=== PATIENT | male | born 1950 | race Caucasian/White ===

== ENCOUNTER 2017-05-30 12:03 | Inpatient (IN) | payer OTHER ==
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
[2017-05-30 12:45] LABS: HEMATOCRIT 41.5 % (40.0-51.0); MEAN CELL HEMOGLOBIN 31.2 pg (27.9-34.1); MEAN CELL HEMOGLOBIN CONCENTR. 33.7 g/dL (32.4-36.7); MEAN CELL VOLUME 92.4 fL (81.5-99.8); RED BLOOD CELL COUNT 4.49 10^6/uL (4.40-6.38); RED CELL DISTRIBUTION WIDTH 13.7 % (11.5-15.2)
[2017-05-30] MEDS ORDERED: NS 1,000 ML IV ONE (12:45)
[2017-05-30] MEDS ORDERED: IOPAMIDOL (ISOVUE-300) 100 ML BTL ONE (12:53)
[2017-05-30 12:54] LABS: INR 1.01 (0.83-1.16); PROTIME(PATIENT) 13.2 SEC (12.0-15.0)
[2017-05-30 12:55] LABS: ANION GAP 13 mEq/L (8-16); CALCIUM 9.4 mg/dL (8.5-10.4); CARBON DIOXIDE 20 mEq/l (22-31); CHLORIDE 110 mEq/L (97-110); CREATININE 0.9 mg/dL (0.7-1.3); GLOMERULAR FILTRATION RATE > 60; GLUCOSE 89 mg/dL (70-100); POTASSIUM 4.1 mEq/L (3.5-5.2); SODIUM 143 mEq/L (134-144)
[2017-05-30] MEDS ORDERED: fentaNYL 100 MCG/2 ML INJ IVP ONE ×2 (13:30→14:08)
[2017-05-30] MEDS ORDERED: TRANEXAMIC ACID 1,000 MG in NS 500 ML IV ONE (13:32)
[2017-05-30] MEDS ORDERED: TRANEXAMIC ACID 1,000 MG in NS 100 ML IV ONE (13:32)
[2017-05-30] MEDS ORDERED: TRANEXAMIC ACID 1,000 MG/10 ML VIAL ONE (13:38)
[2017-05-30] MEDS ORDERED: SKIN ADHESIVE (DERMABOND) 1 EACH TP ONE (13:55)
[2017-05-30] MEDS ORDERED: ONDANSETRON DISINTEGRATING 4 MG TAB PO PRN (14:28)
[2017-05-30] MEDS ORDERED: NALOXONE HCL 0.4 MG/ML INJ IVP PRN (14:28)
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
[2017-05-30 15:27] LABS: K TIME 1.4 minutes (1-3); MAXIMUM AMPLITUDE 64.6 mm (50-70); R TIME 3.7 minutes (5-10)
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
[2017-05-30] MEDS: levETIRAcetam 500 MG TAB PO SCH (20:48)
[2017-05-30] MEDS ORDERED: OXYCODONE/APAP 5/325 TAB ONE (23:21)
[2017-05-30] MEDS: OXYCODONE/APAP 5/325 TAB PO PRN (23:29)
[2017-05-31] MEDS: OXYCODONE/APAP 5/325 TAB PO PRN ×4 (04:32→21:59)
[2017-05-31] MEDS: levETIRAcetam 500 MG TAB PO SCH ×2 (07:31→20:44)
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
[2017-05-31] MEDS: TAMSULOSIN HCL 0.4 MG CAP PO SCH (18:39)
[2017-06-01] MEDS: OXYCODONE/APAP 5/325 TAB PO PRN ×4 (03:13→23:59)
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
--- NOTE | 2017-06-01 09:00 | PDINTPN ---
Balance Screwhead Polisher Progress Note Assessment/Plan: Assessment: * Status post large subdural with midline shift-started on transexemic acid. Unclear yet if patient will require surgery * Multitrauma * Coagulopathy-was on Effient * Coronary disease- * Pain-well controlled * Nutrition- adequate Plan: Transferred SDU Continue pain control Continue PT/OT Subjective: Resting comfortably. Headache minimal at this time Objective: Vital Signs Temp Pulse Resp BP Pulse Ox 36.6 C 67 16 150/70 H 96 06/01/17 08:00 06/01/17 08:00 06/01/17 08:00 06/01/17 08:00 06/01/17 08:00 05/31/17 06/01/17 06/02/17 05:59 05:59 05:59 Intake Total 2303 1275 Output Total 570 100 Balance 1733 1175 PT 13.2 SEC (12.0-15.0) 05/30/17 12:10 INR 1.01 (0.83-1.16) 05/30/17 12:10 Physical Exam - Physical Exam General Appearance: alert, no apparent distress EENT: PERRL/EOMI, normal ENT inspection, other (Prostatic left eye) Neck: non-tender, full range of motion, supple Respiratory: chest non-tender, lungs clear, normal breath sounds Cardiac/Chest: normal peripheral pulses, regular rate, rhythm Peripheral Pulses: 2+: carotid (R), carotid (L), femoral (R), femoral (L), dorsalis-pedis (R), dorsalis-pedis (L) Abdomen: normal bowel sounds, non-tender, soft Male Genitalia: deferred Rectal: deferred Skin: normal color, warm/dry Extremities: normal range of motion, non-tender, normal inspection, normal capillary refill ICD10 Worksheet Patient Problems: Problems Problem Status Onset Acute subdural hematoma Acute Coagulopathy Acute
[2017-06-01] MEDS: ATORVASTATIN CALCIUM 40 MG TAB PO SCH (09:25)
[2017-06-01] MEDS: levETIRAcetam 500 MG TAB PO SCH ×2 (09:28→20:53)
[2017-06-01] MEDS: TRANEXAMIC ACID 650 MG TAB PO SCH ×2 (09:28→20:53)
--- NOTE | 2017-06-01 11:34 | TRAUMAPN ---
- Problem/Surgery Performed (1) Acute subdural hematoma Assessment/Plan: SDH with less shift yesterday, Patient neurologically stable, TEG normal yesterday, FU TEG today. Plan F/u CT on . Will downgrade to SDU (2) Coagulopathy Assessment/Plan: After platelets TEG Okay yesterday. F/u planned for today. Will start heat to left flank hematoma to speed resolution. Facial contusions stable Assessment/Plan: Will down grade ICU to SDU Subjective: I'm tired but feeling okay Objective: Vital Signs Temp Pulse Resp BP Pulse Ox 36.6 C 67 16 150/70 H 96 06/01/17 08:00 06/01/17 08:00 06/01/17 08:00 06/01/17 08:00 06/01/17 08:00 05/31/17 06/01/17 06/02/17 05:59 05:59 05:59 Intake Total 2303 1275 Output Total 570 100 Balance 1733 1175 PT 13.2 SEC (12.0-15.0) 05/30/17 12:10 INR 1.01 (0.83-1.16) 05/30/17 12:10 - C-Spine Clearance Cervical Spine Cleared: Yes Provider who Cleared Cervical Spine: Art Time Cervical Spine was Cleared: 15:00 (05/30) Physical Exam - Physical Exam General Appearance: WD/WN, alert, no apparent distress EENT: PERRL/EOMI (Right eye), normal ENT inspection Neck: non-tender, full range of motion, supple Respiratory: chest non-tender, lungs clear, normal breath sounds Cardiac/Chest: regular rate, rhythm Abdomen: normal bowel sounds, non-tender, soft, other (Has large left flank hematoma) Male Genitalia: deferred Rectal: deferred Back: Normal inspection Skin: normal color, warm/dry Neuro/Psych: no motor/sensory deficits, alert, normal mood/affect, oriented x 3 Time Spent w/Patient (minutes): 35
[2017-06-01 11:54] LABS: % IMMATURE GRANULYOCYTES 0.5 % (0.0-1.1); ABSOLUTE IMMATURE GRANULOCYTES 0.03 10^3/uL (0.00-0.10); ADD DIFF? NO; ADD MORPH? NO; ADD SCAN? NO; ATYPICAL LYMPHOCYTE FLAG 0 (0-99); FRAGMENT RBC FLAG 0 (0-99); HEMOGLOBIN 11.5 g/dL (13.7-17.5); LEFT SHIFT FLG 0 (0-99); LIPEMIA HEMOLYSIS FLAG 90 (0-99); MEAN CELL HEMOGLOBIN 31.3 pg (27.9-34.1); MEAN CELL HEMOGLOBIN CONCENTR. 33.8 g/dL (32.4-36.7); MEAN CELL VOLUME 92.6 fL (81.5-99.8); MEAN PLATELET VOLUME 9.7 fL (8.7-11.7); PLATELET CLUMPS FLAG 0 (0-99); PLATELET COUNT 159 10^3/uL (150-400); RED BLOOD CELL COUNT 3.67 10^6/uL (4.40-6.38); RED CELL DISTRIBUTION WIDTH 13.8 % (11.5-15.2)
[2017-06-01 14:18] LABS: R TIME 4.2 minutes (5-10)
[2017-06-01 14:19] LABS: ALPHA ANGLE 71.8 degrees (53-72); K TIME 1.2 minutes (1-3); MAXIMUM AMPLITUDE 65.6 mm (50-70)
[2017-06-01 14:20] LABS: AA % INHIBITION 69.1 % (0-100)
[2017-06-01] MEDS: TAMSULOSIN HCL 0.4 MG CAP PO SCH (20:53)
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
[2017-06-02] MEDS: ATORVASTATIN CALCIUM 40 MG TAB PO SCH (09:20)
[2017-06-02] MEDS: levETIRAcetam 500 MG TAB PO SCH ×2 (09:20→21:34)
[2017-06-02] MEDS: TRANEXAMIC ACID 650 MG TAB PO SCH ×2 (09:20→21:34)
--- NOTE | 2017-06-02 09:20 | TRAUMAPN ---
- Problem/Surgery Performed (1) Acute subdural hematoma Assessment/Plan: 06/01/2017 SDH with less shift yesterday, Patient neurologically stable, TEG normal yesterday, FU TEG today. Plan F/u CT on . Will downgrade to SDU 06/02 Neurologically stable. F/u CT in Am 06/03 (2) Coagulopathy Assessment/Plan: 06/01/2017 After platelets TEG Okay yesterday. F/u planned for today. Will start heat to left flank hematoma to speed resolution. Facial contusions stable 06/02/2017 F/u TEG yesterday was normal Assessment/Plan: 06/01/2017 Will down grade ICU to SDU 06/02/2017 No stool since admission Will limit constipating foods, ambulate and add Miralax Subjective: "I feel good" No issues but no flatus or stool Objective: Vital Signs Temp Pulse Resp BP Pulse Ox 36.7 C 78 14 121/49 H 99 06/02/17 07:43 06/02/17 07:43 06/02/17 07:43 06/02/17 07:43 06/02/17 07:43 Laboratory Results 06/01/17 11:30 06/01/17 06/02/17 06/03/17 05:59 05:59 05:59 Intake Total 1275 1000 Output Total 100 Balance 1175 1000 PT 13.2 SEC (12.0-15.0) 05/30/17 12:10 INR 1.01 (0.83-1.16) 05/30/17 12:10 - C-Spine Clearance Cervical Spine Cleared: Yes Provider who Cleared Cervical Spine: Art Time Cervical Spine was Cleared: 15:00 (05/30) Physical Exam - Physical Exam General Appearance: WD/WN, alert, no apparent distress EENT: other (left facial contusions) Neck: non-tender, full range of motion, supple Respiratory: chest non-tender, lungs clear, normal breath sounds Cardiac/Chest: regular rate, rhythm Abdomen: normal bowel sounds, non-tender, soft, other (left flank contusion/ hematoma continues) Male Genitalia: deferred Rectal: deferred Back: Normal inspection Skin: normal color, warm/dry Extremities: normal range of motion, non-tender, normal inspection Neuro/Psych: no motor/sensory deficits, alert, normal mood/affect, oriented x 3 Time Spent w/Patient (minutes): 15
--- NOTE | 2017-06-02 09:50 | PDINTPN ---
Furnace Mason Progress Note Assessment/Plan: Assessment: * Status post large subdural with midline shift-started on transexemic acid. Unclear yet if patient will require surgery. -clinically at baseline -repeat CT scan of head tomorrow * Multitrauma * Coagulopathy-was on Effient * Coronary disease- * Pain-well controlled * Nutrition- adequate Plan: Transferred SDU Continue pain control Continue PT/OT Subjective: Resting comfortably. Denies headache. Ambulating in the halls well. Objective: Vital Signs Temp Pulse Resp BP Pulse Ox 36.7 C 78 14 121/49 H 99 06/02/17 07:43 06/02/17 07:43 06/02/17 07:43 06/02/17 07:43 06/02/17 07:43 Laboratory Results 06/01/17 11:30 06/01/17 06/02/17 06/03/17 05:59 05:59 05:59 Intake Total 1275 1000 Output Total 100 Balance 1175 1000 PT 13.2 SEC (12.0-15.0) 05/30/17 12:10 INR 1.01 (0.83-1.16) 05/30/17 12:10 Physical Exam - Physical Exam General Appearance: WD/WN, alert, no apparent distress EENT: PERRL/EOMI, normal ENT inspection Neck: non-tender, full range of motion, supple, normal inspection Respiratory: chest non-tender, lungs clear, normal breath sounds Cardiac/Chest: normal peripheral pulses, regular rate, rhythm Peripheral Pulses: 2+: carotid (R), carotid (L), femoral (R), femoral (L), dorsalis-pedis (R), dorsalis-pedis (L) Abdomen: normal bowel sounds, non-tender, soft Male Genitalia: deferred Rectal: deferred Skin: normal color, warm/dry Extremities: normal range of motion, non-tender, normal inspection, normal capillary refill Neuro/Psych: no motor/sensory deficits, alert, normal mood/affect, oriented x 3 ICD10 Worksheet Patient Problems: Problems Problem Status Onset Acute subdural hematoma Acute Coagulopathy Acute
[2017-06-02] MEDS: POLYETHYLENE GLYCOL 3350 17 GM PKT PO SCH ×2 (09:57→21:34)
[2017-06-02] MEDS: TAMSULOSIN HCL 0.4 MG CAP PO SCH (21:34)
[2017-06-02] MEDS: OXYCODONE/APAP 5/325 TAB PO PRN (23:59)
[2017-06-03 08:05] VITALS: PULSE 63; TEMP 98.5
[2017-06-03] MEDS: TRANEXAMIC ACID 650 MG TAB PO SCH (08:24)
[2017-06-03] MEDS: ATORVASTATIN CALCIUM 40 MG TAB PO SCH (08:24)
[2017-06-03] MEDS: levETIRAcetam 500 MG TAB PO SCH (08:25)
[2017-06-03] MEDS: POLYETHYLENE GLYCOL 3350 17 GM PKT PO SCH (08:25)
--- NOTE | 2017-06-03 08:54 | PDINTPN ---
Hand Iii Cutter Progress Note Assessment/Plan: Assessment: * Status post large subdural with midline shift-started on transexemic acid. Unclear yet if patient will require surgery. -clinically at baseline -repeat CT scan of head today * Multitrauma * Coagulopathy-was on Effient * Coronary disease- * Pain-well controlled * Nutrition- adequate Plan: Transferred SDU Continue pain control Continue PT/OT Repeat CT scan today Subjective: Resting comfortably. Objective: Vital Signs Temp Pulse Resp BP Pulse Ox 36.9 C 63 17 135/66 H 91 L 06/03/17 08:00 06/03/17 08:00 06/03/17 08:00 06/03/17 08:00 06/03/17 08:00 Laboratory Results 06/01/17 11:30 06/02/17 06/03/17 06/04/17 05:59 05:59 05:59 Intake Total 1000 2000 Balance 1000 2000 PT 13.2 SEC (12.0-15.0) 05/30/17 12:10 INR 1.01 (0.83-1.16) 05/30/17 12:10 Physical Exam - Physical Exam General Appearance: alert, no apparent distress EENT: PERRL/EOMI, normal ENT inspection Neck: non-tender, full range of motion, supple, normal inspection Respiratory: chest non-tender, lungs clear, normal breath sounds Cardiac/Chest: normal peripheral pulses, regular rate, rhythm Peripheral Pulses: 2+: carotid (R), carotid (L), femoral (R), femoral (L), dorsalis-pedis (R), dorsalis-pedis (L) Abdomen: normal bowel sounds, non-tender, soft Male Genitalia: deferred Rectal: deferred Skin: normal color, warm/dry Extremities: normal range of motion, non-tender, normal inspection, normal capillary refill ICD10 Worksheet Patient Problems: Problems Problem Status Onset Acute subdural hematoma Acute Coagulopathy Acute
--- NOTE | 2017-06-03 10:23 | TRAUMAPN ---
- Problem/Surgery Performed (1) Acute subdural hematoma Assessment/Plan: 06/01/2017 SDH with less shift yesterday, Patient neurologically stable, TEG normal yesterday, FU TEG today. Plan F/u CT on . Will downgrade to SDU 06/02 Neurologically stable. F/u CT in Am 06/03 06/[address]. Neurologically intact. Awaiting neurosurgery input. (2) Coagulopathy Assessment/Plan: 06/01/2017 After platelets TEG Okay yesterday. F/u planned for today. Will start heat to left flank hematoma to speed resolution. Facial contusions stable 06/02/2017 F/u TEG yesterday was normal (3) Obstructive uropathy Assessment/Plan: 06/03 He has had obstructive sx tx'd with Cialis and flomax. Missed his scheduled cystocopy on 05/31 but will reschedule Assessment/Plan: 06/01/2017 Will down grade ICU to SDU 06/02/2017 No stool since admission Will limit constipating foods, ambulate and add Miralax 06/03 Moving bowels with Miralax. Has routine colonoscopy scheduled next week Subjective: Urinary frequency caused a poor sleep pattern last night. Objective: Vital Signs Temp Pulse Resp BP Pulse Ox 36.9 C 63 17 135/66 H 91 L 06/03/17 08:00 06/03/17 08:00 06/03/17 08:00 06/03/17 08:00 06/03/17 08:00 Laboratory Results 06/01/17 11:30 06/02/17 06/03/17 06/04/17 05:59 05:59 05:59 Intake Total 1000 2000 Balance 1000 2000 PT 13.2 SEC (12.0-15.0) 05/30/17 12:10 INR 1.01 (0.83-1.16) 05/30/17 12:10 - C-Spine Clearance Cervical Spine Cleared: Yes Provider who Cleared Cervical Spine: Art Time Cervical Spine was Cleared: 15:00 (05/30) Physical Exam - Physical Exam General Appearance: WD/WN, alert, no apparent distress EENT: other (facial contusions and swelling resolving) Neck: non-tender, full range of motion, supple Respiratory: chest non-tender, lungs clear, normal breath sounds Cardiac/Chest: regular rate, rhythm Abdomen: normal bowel sounds, non-tender, soft Male Genitalia: deferred Rectal: deferred Back: Normal inspection Skin: normal color, warm/dry Extremities: normal range of motion, non-tender, normal inspection Neuro/Psych: no motor/sensory deficits, alert, normal mood/affect, oriented x 3 Time Spent w/Patient (minutes): 25
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
[2017-06-03 12:31] VITALS: BP 117/58; RESP 18; O2SAT 96
--- NOTE | 2017-06-03 15:21 | GDS ---
[f rep st] DISCHARGE SUMMARY DISCHARGE DIAGNOSES: 1. Right subdural hematoma (contrecoup injury). 2. Left facial abrasions/lacerations. 3. Left flank hematoma. CONDITION ON DISCHARGE: Improved. DISPOSITION: Home. MEDICATIONS AT DISCHARGE: Include Lipitor 40 mg p.o. q.h.s., Keppra 750 mg p.o. b.i.d., Percocet 5/ 325 one to two p.o. q.4 h. p.r.n. pain, MiraLAX 17 g p.o. daily or b.i.d. as needed. He is to kaity nue his Flomax 0.4 mg p.o. q.h.s. He will continue tranexamic acid 650 mg p.o. twice a day. He may continue his vitamin C. He is to hold his aspirin and his Effient. He may resume his multivitamin s. He may use his ketorolac eyedrops. DISCHARGE INSTRUCTIONS: He will follow up with Dr. Trell Carmona in 1 week. He is to avoid situations where he puts his head at risk for recurrent injury. Should he have any increasing headaches, pain , or neurologic findings, he is to contact neurosurgical office or come directly to the ER right francesco y. HOSPITAL COURSE: The patient has been admitted. His right subdural bleed has stabilized and, in fa ct, gotten slightly better with a decrease in shift. He has remained stable. His Effient has been reversed with platelet use. His TEG testing has been normal. Nonetheless, it is felt that surgery is not needed at this point. That decision will be revisited on return to re-evaluation by Dr. Arabella jim. He has done well in the hospital. He has remained neurologically intact. /[id number]/MODL
== END 2017-06-03 15:15 | disposition home or self-care (01) | DRG 87 ==
LOC: EDUNIT# → F2N 15:35
PROVIDERS: ADMIT Surgery; ATTEND Surgery
PROC: 0HQ1XZZ Repair Face Skin, External Approach (ICD-10-PCS; principal; 2017-05-30)
PROC: 30233R1 Transfusion of Nonautologous Platelets into Peripheral Vein, Percutaneous Approach (ICD-10-PCS; 2017-05-30)
DX: S06.5X0A Traumatic subdural hemorrhage without loss of consciousness, initial encounter (principal); S01.112A Laceration without foreign body of left eyelid and periocular area, initial encounter; S01.412A Laceration without foreign body of left cheek and temporomandibular area, initial encounter; I25.10 Atherosclerotic heart disease of native coronary artery without angina pectoris; Z79.01 Long term (current) use of anticoagulants; V18.0XXA Pedal cycle driver injured in noncollision transport accident in nontraffic accident, initial encounter; Y93.55 Activity, bike riding; Z95.5 Presence of coronary angioplasty implant and graft; E78.5 Hyperlipidemia, unspecified; N40.0 Benign prostatic hyperplasia without lower urinary tract symptoms
CPT/HCPCS: 82947-QW; 92507-GN; 92523-GN; 96365; 97116-GP; 97161-GP; 97166-GO; 97530-GO; 97535-GO; J3010; P9037; Q9967

== ENCOUNTER 2017-06-13 06:34 | Inpatient (IN) | payer OTHER ==
[2017-06-13] MEDS ORDERED: NS 1,000 ML IV ONE (06:49)
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
--- NOTE | 2017-06-13 07:04 | CPEKG ---
Heart Rate: 52 RR Interval: 1154 P-R Interval: 160 QRSD Interval: 92 QT Interval: 467 QTC Interval: 435 P [place]: 39 QRS [place]: -5 T Wave [place]: 43 EKG Severity - NORMAL ECG - EKG Impression: SINUS RHYTHM Electronically Signed By: Jamey Lo 13-Jun-2017 15:12:42
[2017-06-13 07:09] LABS: % IMMATURE GRANULYOCYTES 0.5 % (0.0-1.1); ABSOLUTE IMMATURE GRANULOCYTES 0.04 10^3/uL (0.00-0.10); ADD DIFF? NO; ADD MORPH? NO; ADD SCAN? NO; ATYPICAL LYMPHOCYTE FLAG 0 (0-99); FRAGMENT RBC FLAG 0 (0-99); HEMATOCRIT 41.5 % (40.0-51.0); HEMOGLOBIN 13.9 g/dL (13.7-17.5); LEFT SHIFT FLG 0 (0-99); LIPEMIA HEMOLYSIS FLAG 80 (0-99); MEAN CELL HEMOGLOBIN CONCENTR. 33.5 g/dL (32.4-36.7); MEAN CELL VOLUME 92.6 fL (81.5-99.8); MEAN PLATELET VOLUME 9.3 fL (8.7-11.7); PLATELET CLUMPS FLAG 10 (0-99); PLATELET COUNT 256 10^3/uL (150-400); RED BLOOD CELL COUNT 4.48 10^6/uL (4.40-6.38)
[2017-06-13 07:19] LABS: ANION GAP 13 mEq/L (8-16); CALCIUM 10.2 mg/dL (8.5-10.4); CARBON DIOXIDE 25 mEq/l (22-31); CHLORIDE 100 mEq/L (97-110); CREATININE 0.9 mg/dL (0.7-1.3); GLOMERULAR FILTRATION RATE > 60; GLUCOSE 111 mg/dL (70-100); POTASSIUM 4.3 mEq/L (3.5-5.2); SODIUM 138 mEq/L (134-144)
[2017-06-13 07:31] LABS: TROPONIN I < 0.012 ng/mL (0-0.034)
[2017-06-13 07:57] LABS: INR 0.99 (0.83-1.16)
[2017-06-13 07:58] LABS: APTT 26.7 SEC (23.0-38.0)
[2017-06-13] MEDS ORDERED: ONDANSETRON 4 MG/2 ML VIAL IVP ONE (08:09)
[2017-06-13] MEDS ORDERED: BACITRACIN ZINC 14.2 GM OINTTUBE TP ONE (10:09)
[2017-06-13] MEDS ORDERED: CHLORHEXIDINE GLUC HIBICLENS 118 ML BTL TP ONE (10:09)
[2017-06-13] MEDS ORDERED: MANNITOL 20% 100 GM/500 ML BAG IV ONE (10:10)
[2017-06-13] MEDS ORDERED: GENTAMICIN SULFATE 80 MG/2 ML VIAL ONE ×4 (10:10→12:32)
[2017-06-13] MEDS ORDERED: THROMBIN (BOVINE) 5,000 UNIT VIAL TP ONE ×2 (10:10→10:57)
[2017-06-13] MEDS ORDERED: AVITENE POWDER 1 GM JAR TP ONE ×2 (10:10→10:17)
[2017-06-13] MEDS ORDERED: POVIDONE-IODINE 30 GM OINTTUBE TP ONE (10:11)
[2017-06-13] MEDS ORDERED: LIDO/EPI 1% **for epidural** 30 ML SDV ONE (10:11)
[2017-06-13] MEDS ORDERED: BACITRACIN 50,000 UNITS/10 ML SYR IRR ONE (10:11)
[2017-06-13] MEDS ORDERED: BUPIVACAINE/EPI 0.25% 30 ML SDV ONE (10:17)
[2017-06-13] MEDS ORDERED: SURGIFLO MATRIX KIT WITH THROMBIN TP ONE (10:18)
[2017-06-13] MEDS ORDERED: HYDROGEN PEROXIDE 236 ML BOTTLE TP ONE (10:18)
--- NOTE | 2017-06-13 10:44 | PDANEPAE ---
ANE Past Medical History - Cardiovascular History Hx Coronary Artery / Peripheral Vascular Disease: Yes - Pulmonary History Hx Oxygen in Use at Home: No Hx Sleep Apnea: No Sleep Apnea Screening Result - Last Documented: Positive - Endocrine History Hx Diabetes: No - Chronic Pain History Chronic Pain: No ANE Review of Systems - Systems Cardiac: Reports: other (coronary stent in place) ANE Patient History - Allergies Allergies/Adverse Reactions: No Known Allergies Allergy (Verified 05/30/17 15:03) - Home Medications Home Medications: Acetaminophen/Codeine 300/30Mg [Tylenol #3 (*)] 1 - 2 each PO Q6 PRN 06/13/17 [ Last Taken 06/13/17] Atorvastatin Calcium [Lipitor 80 mg] 80 mg PO DAILY 06/13/17 [Last Taken ] Tamsulosin HCl [Flomax 0.4 MG (*)] 0.8 mg PO DAILY 06/13/17 [Last Taken 06/12/17 ] methylPREDNISolone [Methylprednisolone] 1 ea PO AD 06/13/17 [Last Taken 20 mg] - NPO status NPO Since - Liquids (Date): 06/12/17 NPO Since - Liquids (Time): 21:00 NPO Since - Solids (Date): 06/12/17 NPO Since - Solids (Time): 21:00 - Anes Hx Anes Hx: no prior problems - Smoking Hx Smoking Status: Never smoked - Alcohol Use Alcohol Use: Occasionally ANE Labs/Vital Signs - Labs Result Diagrams: 06/13/17 06:54 06/13/17 06:54 - Vital Signs Blood Pressure: 141/72 Heart Rate: 48 Respiratory Rate: 20 O2 Sat (%): 94 Height: 182.88 cm Weight: 70.307 kg ANE Physical Exam - Airway Mallampati Score: Class 2 Mouth exam: normal dental/mouth exam, pablo - ASA Status ASA Status: III, E ANE Anesthesia Plan Anesthesia Plan: general endotracheal anesthesia
[2017-06-13] MEDS ORDERED: CEFAZOLIN 1 GM/DEXTROSE/50 ML BAG IV ONE ×2 (10:55→11:46)
[2017-06-13] MEDS ORDERED: THROMBIN (BOVINE) 20,000 UNIT VIAL TP ONE (10:57)
[2017-06-13] MEDS ORDERED: MIDAZOLAM 2 MG/2 ML VIAL ONE (11:01)
[2017-06-13] MEDS ORDERED: PROPOFOL/EMULSION 500 MG/50 ML BOTTLE IV ONE (11:02)
[2017-06-13] MEDS ORDERED: fentaNYL 100 MCG/2 ML INJ ONE (11:02)
[2017-06-13] MEDS ORDERED: ROCURONIUM 50 MG/5 ML VIAL ONE (11:02)
[2017-06-13] MEDS ORDERED: METOCLOPRAMIDE 10 MG/2 ML VIAL ONE (11:03)
[2017-06-13] MEDS ORDERED: ONDANSETRON 4 MG/2 ML VIAL ONE (11:03)
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
[2017-06-13 11:24] LABS: TEG CONTAINER Citrated Kaolin
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
[2017-06-13 12:56] LABS: ALPHA ANGLE 72.8 degrees (53-72); K TIME 1.2 minutes (1-3); MAXIMUM AMPLITUDE 68.7 mm (50-70); R TIME 4.5 minutes (5-10)
[2017-06-13] MEDS ORDERED: NALOXONE HCL 0.4 MG/ML INJ IVP PRN (14:13)
[2017-06-13] MEDS ORDERED: fentaNYL 100 MCG/2 ML INJ IVP PRN (14:13)
[2017-06-13] MEDS ORDERED: LR 500 ML IV PRN (14:13)
[2017-06-13] MEDS ORDERED: ENALAPRILAT DIHYDRATE 1.25 MG/ML VIAL IVP PRN (14:13)
[2017-06-13] MEDS ORDERED: ONDANSETRON 4 MG/2 ML VIAL IVP PRN (14:13)
--- NOTE | 2017-06-13 14:17 | POSTANESTH ---
Post Anesthetic Evaluation Cardiovascular Status: Normal, Stable Respiratory Status: Normal, Stable Level of Consciousness/Mental Status: Can Participate in Eval, Mildly Sleepy, Arousable Pain Control: Adequate, Prn Tx Ordered Nausea/Vomiting Control: Adequate, Prn Tx Ordered Complications Possibly Related to Anesthesia: None Noted
[2017-06-13] MEDS: fentaNYL 100 MCG/2 ML INJ IVP PRN ×4 (14:20→15:18)
[2017-06-13] MEDS ORDERED: MAGNESIUM HYDROXIDE 30 ML UDCUP PO PRN (14:24)
[2017-06-13] MEDS ORDERED: BISACODYL 10 MG SUPP PR PRN (14:24)
[2017-06-13] MEDS ORDERED: niCARdipine/NACL 200 ML IV PRN (14:24)
[2017-06-13] MEDS ORDERED: POLYETHYLENE GLYCOL 3350 17 GM PKT PO PRN (14:24)
[2017-06-13] MEDS ORDERED: LACTULOSE 20 GM/30 ML UDCUP PO PRN (14:24)
[2017-06-13] MEDS ORDERED: MAG HYDROX/AL HYDROX/SIMETH 30 ML UDCUP PO PRN (14:24)
[2017-06-13] MEDS ORDERED: hydrALAZINE 20 MG/ML VIAL IVP PRN (14:30)
[2017-06-13] MEDS ORDERED: NS W/ 20 KCl/L 1,000 ML IV SCH (14:30)
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
[2017-06-13] MEDS: TRANEXAMIC ACID 650 MG TAB PO SCH ×2 (17:38→21:20)
[2017-06-13] MEDS: HYDROmorphONE/DILAUDID 1 MG/ML SYR IVP PRN ×5 (17:40→22:43)
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
[2017-06-13] MEDS: levETIRAcetam 750 MG in NS 100 ML IV SCH (21:09)
[2017-06-13] MEDS: levETIRAcetam 500 MG TAB PO SCH (21:13)
[2017-06-13] MEDS: SENNOSIDES/DOCUSATE SODIUM TAB PO SCH (21:19)
[2017-06-13] MEDS: FAMOTIDINE 20 MG TAB PO SCH (21:20)
[2017-06-14] MEDS: HYDROmorphONE/DILAUDID 1 MG/ML SYR IVP PRN ×4 (00:02→14:42)
[2017-06-14] MEDS: ACETAMINOPHEN 325 MG TAB PO PRN ×2 (00:02→04:44)
[2017-06-14 05:46] LABS: % IMMATURE GRANULYOCYTES 0.3 % (0.0-1.1); ABSOLUTE IMMATURE GRANULOCYTES 0.03 10^3/uL (0.00-0.10); ADD DIFF? NO; ADD MORPH? NO; ADD SCAN? NO; ATYPICAL LYMPHOCYTE FLAG 0 (0-99); FRAGMENT RBC FLAG 0 (0-99); HEMOGLOBIN 11.6 g/dL (13.7-17.5); LEFT SHIFT FLG 0 (0-99); LIPEMIA HEMOLYSIS FLAG 80 (0-99); MEAN CELL HEMOGLOBIN 30.8 pg (27.9-34.1); MEAN CELL HEMOGLOBIN CONCENTR. 33.1 g/dL (32.4-36.7); MEAN CELL VOLUME 92.8 fL (81.5-99.8); MEAN PLATELET VOLUME 9.6 fL (8.7-11.7); PLATELET CLUMPS FLAG 0 (0-99); PLATELET COUNT 208 10^3/uL (150-400); RED BLOOD CELL COUNT 3.77 10^6/uL (4.40-6.38); RED CELL DISTRIBUTION WIDTH 12.9 % (11.5-15.2)
[2017-06-14 06:14] LABS: ANION GAP 9 mEq/L (8-16); CALCIUM 9.1 mg/dL (8.5-10.4); CARBON DIOXIDE 24 mEq/l (22-31); CHLORIDE 105 mEq/L (97-110); CREATININE 0.8 mg/dL (0.7-1.3); GLOMERULAR FILTRATION RATE > 60; GLUCOSE 97 mg/dL (70-100); SODIUM 138 mEq/L (134-144)
[2017-06-14] MEDS: TAMSULOSIN HCL 0.4 MG CAP PO SCH (08:01)
[2017-06-14] MEDS: FAMOTIDINE 20 MG TAB PO SCH ×2 (08:01→20:57)
[2017-06-14] MEDS: levETIRAcetam 500 MG TAB PO SCH ×2 (08:01→20:57)
[2017-06-14] MEDS: ATORVASTATIN CALCIUM 40 MG TAB PO SCH (08:01)
[2017-06-14] MEDS: SENNOSIDES/DOCUSATE SODIUM TAB PO SCH ×2 (08:02→20:59)
[2017-06-14] MEDS: TRANEXAMIC ACID 650 MG TAB PO SCH ×2 (08:03→20:57)
[2017-06-14] MEDS: levETIRAcetam 750 MG in NS 100 ML IV SCH (08:05)
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
[2017-06-14] MEDS: OXYCODONE/APAP 5/325 TAB PO PRN ×3 (11:33→20:57)
--- NOTE | 2017-06-14 13:35 | HOSPPROG ---
Hospitalist Progress Note Assessment/Plan: * subdural hematoma * Status post evacuation * history of coronary artery disease * Last stent was a couple years ago * Continue to hold Effient and aspirin * BPH Subjective: Right temporal headache is resolved. Does have some headache in the back of the skull where surgery was done. Facial droop and slow speech have all resolved Objective: Vital Signs Temp Pulse Resp BP Pulse Ox 36.4 C 60 17 117/54 L 95 06/14/17 12:00 06/14/17 12:00 06/14/17 12:00 06/14/17 12:00 06/14/17 12:00 Laboratory Results 06/14/17 05:20 06/14/17 05:20 06/13/17 06/14/17 06/15/17 05:59 05:59 05:59 Intake Total 3025 Output Total 1895 400 Balance 1130 -400 PT 13.0 SEC (12.0-15.0) 06/13/17 06:50 INR 0.99 (0.83-1.16) 06/13/17 06:50 Discussed with pulmonology Tele personally viewed interpreted normal sinus rhythm - Physical Exam Constitutional: no apparent distress, appears nourished, not in pain Eyes: anicteric sclera, EOMI Ears, Nose, Mouth, Throat: moist mucous membranes, hearing normal, ears appear normal Cardiovascular: regular rate and rhythym, no murmur, rub, or gallop Respiratory: no respiratory distress, no rales or rhonchi, clear to auscultation Gastrointestinal: normoactive bowel sounds, soft, non-tender abdomen, no palpable masses Skin: warm Neurologic: AAOx3, facial droop (Slight left facial droop which is stable from previous injury), No weakness Psychiatric: interacting appropriately, not anxious, not encephalopathic, thought process linear ICD10 Worksheet Patient Problems: Problems Problem Status Onset Subdural hemorrhage Acute Acute subdural hematoma Acute Coagulopathy Acute Hematoma of left flank Acute Obstructive uropathy Acute
[2017-06-15] MEDS: OXYCODONE/APAP 5/325 TAB PO PRN ×2 (00:29→10:01)
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
[2017-06-15] MEDS: levETIRAcetam 500 MG TAB PO SCH ×2 (09:59→20:30)
[2017-06-15] MEDS: ATORVASTATIN CALCIUM 40 MG TAB PO SCH (09:59)
[2017-06-15] MEDS: TRANEXAMIC ACID 650 MG TAB PO SCH ×2 (10:00→20:29)
[2017-06-15] MEDS: TAMSULOSIN HCL 0.4 MG CAP PO SCH (10:00)
[2017-06-15] MEDS: ACETAMINOPHEN 325 MG TAB PO PRN (10:00)
[2017-06-15] MEDS: SENNOSIDES/DOCUSATE SODIUM TAB PO SCH ×2 (10:00→20:40)
[2017-06-15] MEDS: FAMOTIDINE 20 MG TAB PO SCH ×2 (10:01→20:32)
--- NOTE | 2017-06-15 13:25 | HOSPPROG ---
Hospitalist Progress Note Assessment/Plan: * subdural hematoma * Status post evacuation * Doing well * Possible discharge tomorrow * history of coronary artery disease * Last stent was a couple years ago * Continue to hold Effient and aspirin * BPH Subjective: No new complaints Objective: Vital Signs Temp Pulse Resp BP Pulse Ox 36.8 C 59 L 16 142/78 H 92 06/15/17 11:02 06/15/17 11:02 06/15/17 11:02 06/15/17 11:02 06/15/17 11:02 Laboratory Results 06/14/17 05:20 06/14/17 05:20 06/14/17 06/15/17 06/16/17 05:59 05:59 05:59 Intake Total 3025 1442 Output Total 1895 430 Balance 1130 1012 PT 13.0 SEC (12.0-15.0) 06/13/17 06:50 INR 0.99 (0.83-1.16) 06/13/17 06:50 - Physical Exam Constitutional: no apparent distress, appears nourished, not in pain Eyes: anicteric sclera, EOMI Ears, Nose, Mouth, Throat: moist mucous membranes, hearing normal Cardiovascular: regular rate and rhythym, no murmur, rub, or gallop Respiratory: no respiratory distress, no rales or rhonchi, clear to auscultation Gastrointestinal: normoactive bowel sounds, soft, non-tender abdomen, no palpable masses Neurologic: AAOx3, other (Slight left facial droop which is chronic) Psychiatric: interacting appropriately, not anxious, not encephalopathic, thought process linear ICD10 Worksheet Patient Problems: Problems Problem Status Onset Subdural hemorrhage Acute Acute subdural hematoma Acute Coagulopathy Acute Hematoma of left flank Acute Obstructive uropathy Acute
[2017-06-15] MEDS: oxyCODONE IR 5 MG TAB PO PRN (20:31)
[2017-06-16] MEDS: oxyCODONE IR 5 MG TAB PO PRN ×3 (01:26→11:06)
[2017-06-16] MEDS: ACETAMINOPHEN 325 MG TAB PO PRN (01:27)
[2017-06-16 07:59] VITALS: BP 125/61; PULSE 53; RESP 14; TEMP 98.2; O2SAT 90
[2017-06-16] MEDS: levETIRAcetam 500 MG TAB PO SCH (09:08)
[2017-06-16] MEDS: TAMSULOSIN HCL 0.4 MG CAP PO SCH (09:08)
[2017-06-16] MEDS: TRANEXAMIC ACID 650 MG TAB PO SCH (09:09)
[2017-06-16] MEDS: ATORVASTATIN CALCIUM 40 MG TAB PO SCH (09:09)
[2017-06-16] MEDS: FAMOTIDINE 20 MG TAB PO SCH (09:09)
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
[2017-06-16] MEDS: SENNOSIDES/DOCUSATE SODIUM TAB PO SCH (09:26)
== END 2017-06-16 14:20 | disposition home or self-care (01) | DRG 27 ==
LOC: F2N 08:46 → F3N 06-15 10:55
PROVIDERS: ADMIT Neurological Surgery; ATTEND Neurological Surgery
PROC: 0W310ZZ Control Bleeding in Cranial Cavity, Open Approach (ICD-10-PCS; principal; 2017-06-13 10:00)
PROC: 00C40ZZ Extirpation of Matter from Intracranial Subdural Space, Open Approach (ICD-10-PCS; principal; 2017-06-13 10:00)
DX: S06.5X0A Traumatic subdural hemorrhage without loss of consciousness, initial encounter (principal); V19.3XXA Pedal cyclist (driver) (passenger) injured in unspecified nontraffic accident, initial encounter; I25.10 Atherosclerotic heart disease of native coronary artery without angina pectoris; E78.5 Hyperlipidemia, unspecified; N40.0 Benign prostatic hyperplasia without lower urinary tract symptoms; R29.810 Facial weakness; S04.5 Injury of facial nerve; S02.91XS Unspecified fracture of skull, sequela; S02.92XS Unspecified fracture of facial bones, sequela; V89.9XXS Person injured in unspecified vehicle accident, sequela; Z97.0 Presence of artificial eye; Z95.5 Presence of coronary angioplasty implant and graft; Z79.02 Long term (current) use of antithrombotics/antiplatelets; Z79.82 Long term (current) use of aspirin; Y92.9 Unspecified place or not applicable
CPT/HCPCS: 92523-GN; 96374; 97161-GP; 97166-GO; 97530-GO; C1713; C1729; J0360; J0690; J1170; J1953; J2250; J2405; J2704; J2765; J3010

== ENCOUNTER 2017-06-19 17:16 | Emergency (ER) | payer OTHER ==
[2017-06-19] MEDS ORDERED: IOPAMIDOL (ISOVUE 370) 100 ML BTL IV ONE (17:23)
--- NOTE | 2017-06-19 17:29 | CPEKG ---
Heart Rate: 63 RR Interval: 952 P-R Interval: 140 QRSD Interval: 92 QT Interval: 452 QTC Interval: 463 P [place]: 43 QRS [place]: 19 T Wave [place]: 46 EKG Severity - NORMAL ECG - EKG Impression: SINUS RHYTHM Electronically Signed By: Erwin Smith 19-Jun-2017 17:54:21
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
[2017-06-19 17:35] LABS: % IMMATURE GRANULYOCYTES 0.6 % (0.0-1.1); ABSOLUTE IMMATURE GRANULOCYTES 0.03 10^3/uL (0.00-0.10); ADD DIFF? NO; ADD MORPH? NO; ADD SCAN? NO; ATYPICAL LYMPHOCYTE FLAG 10 (0-99); FRAGMENT RBC FLAG 0 (0-99); HEMATOCRIT 39.2 % (40.0-51.0); HEMOGLOBIN 13.2 g/dL (13.7-17.5); LEFT SHIFT FLG 0 (0-99); LIPEMIA HEMOLYSIS FLAG 80 (0-99); MEAN CELL HEMOGLOBIN 30.9 pg (27.9-34.1); MEAN CELL HEMOGLOBIN CONCENTR. 33.7 g/dL (32.4-36.7); MEAN CELL VOLUME 91.8 fL (81.5-99.8); MEAN PLATELET VOLUME 9.2 fL (8.7-11.7); PLATELET CLUMPS FLAG 0 (0-99); PLATELET COUNT 242 10^3/uL (150-400); RED BLOOD CELL COUNT 4.27 10^6/uL (4.40-6.38); RED CELL DISTRIBUTION WIDTH 12.3 % (11.5-15.2)
[2017-06-19 17:53] LABS: ANION GAP 10 mEq/L (8-16); CALCIUM 9.9 mg/dL (8.5-10.4); CARBON DIOXIDE 25 mEq/l (22-31); CHLORIDE 102 mEq/L (97-110); CREATININE 0.9 mg/dL (0.7-1.3); GLOMERULAR FILTRATION RATE > 60; GLUCOSE 95 mg/dL (70-100); POTASSIUM 4.3 mEq/L (3.5-5.2); SODIUM 137 mEq/L (134-144)
[2017-06-19 17:56] LABS: INR 1.08 (0.83-1.16); PROTIME(PATIENT) 13.9 SEC (12.0-15.0)
[2017-06-19 18:20] VITALS: BP 126/87; PULSE 60; RESP 16; TEMP 98.4; O2SAT 98
== END 2017-06-19 18:19 | disposition home or self-care (01) ==
DX: S06.5X0D Traumatic subdural hemorrhage without loss of consciousness, subsequent encounter (principal); I25.10 Atherosclerotic heart disease of native coronary artery without angina pectoris; Z95.5 Presence of coronary angioplasty implant and graft; V19.9XXD Pedal cyclist (driver) (passenger) injured in unspecified traffic accident, subsequent encounter
CPT/HCPCS: Q9967

== ENCOUNTER → 2017-07-23 | Outpatient (CLI) | payer OTHER | LOC: FIMAGING 09:55 | PROVIDERS: ATTEND Neurological Surgery | DX: S06.5X0D Traumatic subdural hemorrhage without loss of consciousness, subsequent encounter (principal) ==